=== PATIENT | female | born 1995 | race Caucasian/White ===

== ENCOUNTER 2022-10-14 14:49 | Emergency (ER) | payer MEDICAID, SELFPAY ==
[2022-10-14 14:49] VITALS: BP 142/72; PULSE 93; RESP 16; TEMP 36.6; O2SAT 100; BMI 47.5
--- NOTE | 2022-10-14 15:02 | US_ITS ---
STUDY: FIRST TRIMESTER OBSTETRICAL ULTRASOUND REASON FOR EXAM: Female, 26 years old. vaginal bleed -- 8 wks by dates TECHNIQUE: Transvaginal US was obtained to better visualized the ovaries. TECHNICAL QUALITY: Adequate. PRIOR ULTRASOUND: None. FINDINGS: There is visualization of a single gestational sac in a normal intrauterine position. The mean sac diameter (MSD) measures 11 mm, indicating an estimated gestational age (EGA) of 5 weeks, 6 days. The gestational sac shape is within normal limits. There is a visualized yolk sac. The yolk sac measures 3.7 mm. The placenta is non-visualized. Due to early gestation, the placenta is not seen. There is visualization of a live embryo. The crown-rump length (CRL) measures 9.5 mm, indicating an estimated gestational age (EGA) of 7 weeks, 1 days. There is demonstrated cardiac activity with a heart rate of 142 bpm. The estimated gestation age (EGA) by LMP is 8 weeks, 0 days. The estimated date of delivery (JOSE ANGEL) by LMP is 12.5.23. The estimated gestation age (EGA) by US is 6 weeks, 4 days. The estimated date of delivery (JOSE ANGEL) by US is 12.15.23. The uterus measures 10 cm. There is no demonstrated uterine fibroid. The cervix is closed. Moderate subchorionic hemorrhage. The right ovary measures 2.3 cm. There is no right ovarian cyst. There is no visualized right adnexal mass or complex lesion. The left ovary measures 2.8 cm. There is no left ovarian cyst. There is no visualized left adnexal mass or complex lesion. There is no fluid in the cul de sac. US/Transvaginal w/Preg US IMPRESSION: There is a single live intrauterine with a heart rate of 142 bpm. Moderate subchorionic hemorrhage. Electronically Signed: Abdelrahman Jonas MD at 19:45 EDT ,
--- NOTE | 2022-10-14 15:03 | ED.VIS.FEGU ---
HPI HPI - Female History of Present Illness Chief Complaint: Vag Bld, Preg Informant: patient Associated Symptoms P: 3 Narrative Narrative: 8-week gestation by dates presents with spotting since a.m. this morning. Patient at work does a lot of walking. Denies trauma. Denies urinary symptoms. Denies any clots. Denies any current cramping. Patient stopped smoking when she found she was , typically smokes a pack per day states while walking here she smoked a cigarette. Denies alcohol or any recreational drug use. Patient medications for anxiety and depression. Patient reports she is to have her OB first appointment in 3 days followed by [facility] in [place]. This will be a new facility for her as her previous OB retired which was Dr. Ward. She states with her miscarriage it was before her last child and she was 4 weeks. Reports does not know her blood type, with her miscarriage she was never given any injections per patient. Prior similar symptoms: Yes PFSH PFSH Home Medications venlafaxine 37.5 mg tablet 37.5 mg PO DAILY 10/14/22 [History Last Taken Unknown] Allergy/AdvReac Type Severity Reaction Status Date / Time No Known Allergies Allergy Verified 10/14/22 14:51 Social History Smoking Status: Never smoker ROS ROS ED Constitutional Constitutional ED: Denies chills, fever(s) or sweats Eyes Eyes: Denies change in vision ENT ENT ED: Denies dysphagia or sore throat Cardiovascular Cardiovascular: Denies chest pain, leg edema, palpitations or racing heartbeat Respiratory/Chest Respiratory/Chest: Denies cough, dyspnea or dyspnea on exertion Gastrointestinal Gastrointestinal: Denies abdominal pain, diarrhea, nausea or vomiting Genitourinary Genitourinary ED: Reports other Details: Vaginal spotting ; Denies dysuria, hematuria or urinary frequency Musculoskeletal Musculoskeletal: Denies back pain, extremity pain or neck pain Integumentary Denies rash or wounds Neurologic Neurologic: Denies headache(s), paresthesias or weakness EXAM Physical Exam Const Vital Signs: 10/14/22 14:49 10/14/22 19:10 Temperature 98 F 98.6 F Temperature Source Temporal Temporal Pulse Rate 93 Respiratory Rate 16 18 Blood Pressure 142/72 H 110/56 L Blood Pressure Mean 95 74 Pulse Ox 100 Oxygen Delivery Method Room Air Room Air Positive well nourished and well developed General Appearance ED: well developed and NAD HEENT Reports moist mucous membranes normocephalic and atraumatic Eyes PERRL, EOMs intact bilaterally and conjunctivae normal General Eye ED: Yes normal appearance of both eyes Neck no lymphadenopathy and supple General: Negative for tenderness Chest Wall Chest: Negative for tenderness Resp normal respiratory effort and normal air movement Effort and Inspection: symmetric chest movement; Negative for respiratory distress Cardio regular rate, regular rhythm and no murmurs Peripheral Pulses: pulses 2+ throughout GI normal to inspection, nondistended, normoactive bowel sounds and non-tender GI Narrative: No guarding or rebound, negative Granado's McBurney's tenderness. Palpation: Negative for guarding or rebound tenderness present Back/Spine no CVA tenderness and no thoracic nor lumbar tenderness Extremity normal to inspection General Extremety ED: Negative for edema or tenderness General Extremity: Negative for edema Neuro oriented x3 and no sensory deficits noted Sensorium / Orientation: awake and alert Skin no rashes or lesions noted and no wounds MDM MDM MDM Narrative Medical decision making narrative: Interventions / MDM: Differential diagnosis: First trimester , threatened miscarriage, Diagnosis considered but do not suspect: N/A My EKG interpretation: N/A Imaging independently reviewed and interpreted by myself: Transvaginal ultrasound: Per radiology 5-week 6-day heart tones 142, moderate subchorionic hemorrhage External documents reviewed: N/A Test considered but not ordered:N/A ED course: Patient vital stable abdomen nontender bedside ultrasound performed by myself was unable to locate any gestational sac. We will check hCG, will check Rh, will obtain a formal ultrasound. Blood type a positive. Urine negative hCG 3567. Ultrasound intrauterine 5 weeks 6 days heart tones normal moderate subchorionic hemorrhage. Re-evaluation: stable, discussed pelvic rest discussed tobacco cessation. Discussed threatened miscarriage with subchorionic hemorrhage. She is followed by [place] [facility]. She will call them for follow-up. All questions were answered. Disposition discussed with patient/family/significant other: Patient Case discussed with consulting clinician: N/A Lab Data Attestation: I reviewed the patient's lab results. Labs: Laboratory Results - last 24 hr 10/14/22 10/14/22 10/14/22 15:40 15:40 16:15 HCG, Quant 3567 H Urine Color Yellow Urine Clarity Sl. Cloudy Urine pH 6.5 Ur Specific [place] 1.010 Urine Protein Negative Urine Glucose (UA) Normal Urine Ketones Negative Urine Occult Blood 250 H Urine Nitrite Negative Urine Bilirubin Negative Urine Urobilinogen Normal Ur Leukocyte Esterase Negative Urine RBC 0-5 SEEN Urine WBC 0-5 SEEN Ur Squamous Epith Cells 0-5 SEEN Urine Bacteria RARE Urine Mucus 0 SEEN Urine Test Positive H Blood Type 10/14/22 16:15 HCG, Quant Urine Color Urine Clarity Urine pH Ur Specific [place] Urine Protein Urine Glucose (UA) Urine Ketones Urine Occult Blood Urine Nitrite Urine Bilirubin Urine Urobilinogen Ur Leukocyte Esterase Urine RBC Urine WBC Ur Squamous Epith Cells Urine Bacteria Urine Mucus Urine Test Blood Type A POSITIVE Radiography Diagnostic Testing: Clinical Impression(s) from Imaging Studies Obstetrics Ultrasound 10/14/22 15:02 IMPRESSION: There is a single live intrauterine with a heart rate of 142 bpm. Moderate subchorionic hemorrhage. Electronically Signed: Abdelrahman Jonas MD at 19:45 EDT Reading Location ID and State: [facility] / [place] , Service support , Discharge Plan Triage Chief Complaint: Vag Bld, Preg ED Provider: Juarez Price Dx/Rx/DC Orders Clinical Impression: Threatened miscarriage, First trimester , Subchorionic hemorrhage in first trimester Instructions: 1st Trimester, ED Possible Miscarriage ... Prescriptions: No Action venlafaxine 37.5 mg tablet 37.5 mg PO DAILY Primary Care Provider: Max Hua Referrals: Max Hua DO [Primary Care Provider] - Activity Restrictions/Additional Instructions: Your hCG level is 3567. Blood type a positive. Ultrasound 5 weeks 6-day heart tones 142, moderate subchorionic hemorrhage noted. Pelvic rest as discussed. Stop smoking. Call your OB team for follow-up. Disposition Disposition: Home, Self Care Discharge Date/Time: 10/14/22 21:07
[2022-10-14 15:54] LABS: Mucous, Urine 0 SEEN /hpf (<or=2+)
[2022-10-14 16:28] LABS: Color, Urine Yellow (Yellow); Glucose, Dipstick Normal (Normal); Ketone-Dipstick Negative (Negative); Leukocyte Esterase-Dipstick Negative /ul (Negative); Nitrite-Dipstick Negative (Negative); Occult Blood-Urine 250 /ul (Negative); Protein-Dipstick Negative (Negative); Urine Bilirubin Dipstick Negative (Negative); Urine Clarity Sl. Cloudy (Clear); Urine Urobilinogen Normal (Normal); Urine pH 6.5 (5.0 - 8.0)
[2022-10-14 16:31] LABS: Bacteria RARE /hpf (None Seen); Red Blood Cells-Urine 0-5 SEEN /hpf (0-5); Squamous Epithelial Cells - UA 0-5 SEEN /hpf (5-10); White Blood Cells 0-5 SEEN /hpf (0-5)
[2022-10-14 16:33] LABS: Internal QC Validated? YES +Cl - CLEAR BKGD
[2022-10-14 16:37] LABS: Pregnancy, Urine Positive Negative
[2022-10-14 17:48] LABS: hCG Titer Quant., Serum 3567 mIU/mL (1-3)
[2022-10-14 19:10] VITALS: BP 110/56; RESP 18; TEMP 37
== END 2022-10-14 21:07 | disposition home or self-care (01) ==
PROVIDERS: Emergency Provider Emergency Medicine; PCP Family Medicine; Visit Provider Emergency Medicine
DX: O20.0 Threatened abortion (principal); F41.9 Anxiety disorder, unspecified; Z87.891 Personal history of nicotine dependence; Z3A.01 Less than 8 weeks gestation of pregnancy; O99.340 Other mental disorders complicating pregnancy, unspecified trimester
CPT/HCPCS: 76817; 81001; 81025; 84702; 86900; 86901; 99282; A4216

== ENCOUNTER 2024-06-22 14:24 | Emergency (ER) | payer MEDICAID, SELFPAY ==
[2024-06-22 14:25] VITALS: BP 118/62; PULSE 89; RESP 17; TEMP 36.3; O2SAT 96
[2024-06-22] MEDS: Ipratropium/Albuterol Sulfate 3 ML AMPUL.NEB INHALATION (15:14)
[2024-06-22] MEDS: Albuterol 2.5 MG/3 ML VIAL.NEB. INHALATION (15:14)
[2024-06-22 15:16] VITALS: PULSE 83; RESP 17
--- NOTE | 2024-06-22 15:30 | RAD_ITS ---
INDICATION: cough EXAMINATION/TECHNIQUE: X-RAY - XR Chest 2 Views COMPARISON: April 03, 2014 FINDINGS: LINES/DEVICES: None. LUNGS: No consolidation, edema or effusion. Mild basilar interstitial prominence. No pneumothorax. MEDIASTINUM AND CARDIOVASCULAR STRUCTURES: Cardiac silhouette not enlarged. Central airways and mediastinal contour are unremarkable. BONES AND SOFT TISSUES: Unremarkable. RAD/Chest PA and Lateral IMPRESSION: Mild basilar interstitial prominence. Electronically Signed: Gerardo Chowdhury DO at 16:28 EST ,
--- NOTE | 2024-06-22 15:33 | ED.VIS.DYS ---
HPI History of Present Illness Chief Complaint: Cold Sx Informant: patient and spouse/S.O. Narrative Narrative: 28-year-old female presenting to the emergency room with 4 days of cough shortness of breath and feeling poorly. 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 She states that she is a smoker but has not been smoking with this illness. She notes nausea but no diarrhea or vomiting. [facility] Medical History Light headed Home Medications ?Medication ?Instructions ?Recorded ?Last Taken ?Type venlafaxine 37.5 mg tablet 37.5 mg PO DAILY 10/14/22 Unknown History albuterol sulfate 90 mcg/actuation 2 puff inhalation Q4H PRN PRN 06/22/24 Unknown Rx aerosol inhaler (Ventolin HFA) Wheezing ##1 prednisone 20 mg tablet 60 mg (3 x 20 mg) PO DAILY #15 06/22/24 Unknown Rx TABLETS Allergy/AdvReac Type Severity Reaction Status Date / Time No Known Allergies Allergy Verified 06/22/24 14:30 Social History Smoking Status: Never smoker ROS [facility] ED Constitutional Constitutional ED: Reports chills and sweats; Denies weight loss Eyes Eyes: Denies change in vision or diplopia ENT ENT ED: Reports rhinorrhea; Denies ear pain or sore throat Cardiovascular Cardiovascular: Denies chest pain, orthopnea, palpitations or racing heartbeat Respiratory/Chest Respiratory/Chest: Reports cough, dyspnea, dyspnea on exertion and sputum; Denies orthopnea Gastrointestinal Gastrointestinal: Reports nausea; Denies abdominal pain, diarrhea or vomiting Genitourinary Genitourinary ED: Denies dysuria, hematuria or urinary frequency Musculoskeletal Musculoskeletal: Denies arthralgias or myalgias Integumentary Denies abscess or rash Neurologic Neurologic: Reports headache(s); Denies weakness Psychiatric Psychiatric: Denies anxiety, depression, suicidal ideation or suicidal thoughts Endocrine Endocrinology: Denies polydipsia, polyphagia or polyuria Allergic/Immunologic Allergic/Immunologic ED: Denies mouth swelling, tongue swelling or urticaria EXAM Physical Exam Const Vital Signs: 06/22/24 14:25 01/01/25 15:16 Temperature 97.4 F L Temperature Source Temporal Pulse Rate 89 83 Respiratory Rate 17 17 Respiratory Pattern Normal Blood Pressure 118/62 Blood Pressure Mean 80 Pulse Ox 96 Oxygen Delivery Method Room Air Positive well nourished and well developed General Appearance ED: well developed and NAD HEENT Reports normocephalic, head/scalp atraumatic and moist mucous membranes Eyes PERRL and EOMs intact bilaterally Neck no lymphadenopathy, supple and no JVD Resp normal respiratory effort Auscultation: rhonchi and wheezes expiratory wheezes and inspiratory wheezes Cardio regular rate, regular rhythm and no murmurs GI normal to inspection, nondistended, normoactive bowel sounds and non-tender Palpation: soft Back/Spine no CVA tenderness and normal ROM Extremity normal to inspection General Extremety ED: Negative for edema General Extremity: Negative for edema Neuro oriented x3 and CN's II-XII intact bilaterally Sensorium / Orientation: alert Motor Exam: strength 5/5 throughout Psych mental status grossly normal Mood & Affect: Negative for depressed or tearful Skin no rashes or lesions noted and no wounds MDM MDM MDM Narrative Medical decision making narrative: Differential diagnosis includes but not limited to acute viral syndrome bronchitis pneumonia pleural effusion My independent interpretation of the chest x-ray is no definitive infiltrate. COVID influenza and RSV swabs were obtained and are positive for influenza A Patient received breathing treatments here in the department. Patient has influenza A. When I write for her to have an albuterol MDI and some prednisone at home given the wheezing. She is on day 4 symptoms and I would expect her symptoms to improve over the next couple days. Follow-up as needed return if worsening or concerns History & Record Review Discussion w/independent historian: Patient and Significant other Radiography Diagnostic Testing: Clinical Impression(s) from Imaging Studies Chest X-Ray 06/22/24 15:30 IMPRESSION: Mild basilar interstitial prominence. Electronically Signed: Gerardo Chowdhury DO at 16:28 EST Reading Location ID and State: [facility] / [place] Tel [phone], Service support , Discharge Plan Triage Chief Complaint: Cold Sx ED Provider: Grover Ventura Dx/Rx/DC Orders Clinical Impression: Influenza A Instructions: ED Influenza (Adult) Prescriptions: New prednisone 20 mg tablet 60 mg PO DAILY Qty: 15 0RF albuterol sulfate [Ventolin HFA] 90 mcg/actuation HFA aerosol inhaler 2 puff inhalation Q4H PRN PRN (Reason: Wheezing) Qty: 1 0RF Rx Instructions: with spacer No Action venlafaxine 37.5 mg tablet 37.5 mg PO DAILY Primary Care Provider: Max Hua Referrals: Max Hua DO [Primary Care Provider] - As Needed Print Language: Albanian Disposition Disposition: Home, Self Care
[2024-06-22 16:24] VITALS: BP 176/86; PULSE 110; RESP 18; O2SAT 95
[2024-06-22 16:54] VITALS: O2SAT 96
[2024-06-22 16:55] VITALS: BMI 19.1
== END 2024-06-22 16:59 | disposition home or self-care (01) ==
PROVIDERS: Emergency Provider Emergency Medicine; PCP Family Medicine; Referring Provider Emergency Medicine; Visit Provider Emergency Medicine
DX: J10.1 Influenza due to other identified influenza virus with other respiratory manifestations (principal); R06.2 Wheezing; R11.0 Nausea; Z11.52 Encounter for screening for COVID-19; F17.200 Nicotine dependence, unspecified, uncomplicated; Z79.899 Other long term (current) drug therapy
CPT/HCPCS: 71046; 87631; 94640; 99283